=== PATIENT | female | born 1980 | race Caucasian/White ===

== ENCOUNTER 2017-01-15 19:32 | Emergency (ER) | payer OTHER ==
[2017-01-15] MEDS ORDERED: ROBAXIN 750750 M1 DOB (20:26)
[2017-01-15] MEDS ORDERED: PREDNISONE PO (20:27)
== END 2017-01-15 20:27 | disposition home or self-care (01) ==
LOC: SED 19:32
DX: M54.40 Lumbago with sciatica, unspecified side (principal); F17.200 Nicotine dependence, unspecified, uncomplicated
CPT/HCPCS: 96372; 99283; J1885